=== PATIENT | female | born 1975 | race Caucasian/White ===

== ENCOUNTER 2018-01-21 16:05 | Emergency (ER) | payer SELFPAY ==
[~2018-01-21] VITALS: Ht 170.2 cm; Wt 56.0 kg
[2018-01-21 16:39] VITALS: BP 135/98
[2018-01-21 17:29] LABS: URINE BILIRUBIN - DIPSTICK NEGATIVE (NEGATIVE); URINE BLOOD DIPSTICK NEGATIVE (NEGATIVE); URINE CLARITY CLEAR; URINE COLOR YELLOW; URINE GLUCOSE - DIPSTICK NEGATIVE (NEGATIVE); URINE KETONE NEGATIVE (NEGATIVE); URINE LEUK ESTERASE NEGATIVE (NEGATIVE); URINE NITRITE - DIPSTICK NEGATIVE (Negative); URINE PROTEIN - DIPSTICK NEGATIVE (NEG-TRACE); URINE SPECIFIC GRAVITY <=1.005; URINE UROBILINOGEN - DIPSTICK 0.2 E.U./dL (0.2)
[2018-01-21 17:30] LABS: HEMATOCRIT 44.1 % (37.0-47.0); HEMOGLOBIN 14.3 g/dl (12.0-16.0); IMMATURE GRANULOCYTES 0.3 % (0.0-1.0); MEAN CELL VOLUME 93.4 fL CALC (80.0-100.0); MEAN CORPUSCULAR HGB 30.3 pG CALC (26.0-32.0); MEAN CORPUSCULAR HGB CONC 32.4 g/L CALC (32.0-36.0); NEUT# 4.71 thou/uL (2.00-7.15); RED BLOOD COUNT 4.72 mill/uL (4.20-5.60); RED CELL DISTRI WIDTH 14.8 % (11.5-15.5)
[2018-01-21 17:43] LABS: ALBUMIN 4.8 g/dL (3.2-5.0); ALKALINE PHOSPHATASE 133 u/l (38-126); ANION GAP 14 (6-22 (CALC)); BILIRUBIN, TOTAL 0.6 mg/dL (0.0-1.4); BUN 10 mg/dL (7-17); BUN/CREATININE RATIO 14 (12-20 (CALC)); CARBON DIOXIDE 25 mmol/l (22-30); CHLORIDE 105 mmol/l (95-108); CREATININE 0.7 mg/dL (0.5-1.0); GFR > 60 ML/MIN (>=60 (CALC)); GFR FOR AFR.AMER. > 60 ML/MIN (>=60 (CALC)); SGOT/AST 271 u/l (14-36); SGPT/ALT 452 u/l (9-52); SODIUM 140 mmol/l (137-146); TOTAL PROTEIN 8.9 g/dL (6.3-8.2)
[2018-01-21] MEDS ORDERED: LORTAB 5/3255 MG PO (18:06)
[2018-01-21] MEDS ORDERED: MOTRIN800 MG PO (18:06)
[2018-01-21] MEDS ORDERED: FLEXERIL PO (18:06)
[2018-01-21 18:07] LABS: LIPASE 138 u/l (23-300)
== END 2018-01-21 18:25 | disposition home or self-care (01) | DRG 552 ==
LOC: ED 16:05
PROVIDERS: Emergency Medicine
DX: M54.9 Dorsalgia, unspecified (principal); R74.8 Abnormal levels of other serum enzymes; F17.210 Nicotine dependence, cigarettes, uncomplicated; Z87.440 Personal history of urinary (tract) infections

== ENCOUNTER 2018-05-05 18:43 | Emergency (ER) | payer SELFPAY ==
[~2018-05-05] VITALS: Ht 170.2 cm; Wt 56.2 kg
[~2018-05-05 18:43] MED LIST: FLEXERIL PO; LORTAB 5/3255 MG PO; MOTRIN800 MG PO
[2018-05-05 19:31] LABS: HEMATOCRIT 39.8 % (37.0-47.0); HEMOGLOBIN 12.8 g/dl (12.0-16.0); IMMATURE GRANULOCYTES 0.3 % (0.0-5.0); MEAN CELL VOLUME 89.8 fL CALC (80.0-100.0); MEAN CORPUSCULAR HGB 28.9 pG CALC (26.0-32.0); MEAN CORPUSCULAR HGB CONC 32.2 g/L CALC (32.0-36.0); NEUT# 2.93 thou/uL (2.00-7.15); RED BLOOD COUNT 4.43 mill/uL (4.20-5.60); RED CELL DISTRI WIDTH 14.2 % (11.5-15.5)
[2018-05-05 19:35] LABS: URINE BILIRUBIN - DIPSTICK NEGATIVE (NEGATIVE); URINE BLOOD DIPSTICK NEGATIVE (NEGATIVE); URINE COLOR YELLOW; URINE GLUCOSE - DIPSTICK NEGATIVE (NEGATIVE); URINE KETONE NEGATIVE (NEGATIVE); URINE LEUK ESTERASE NEGATIVE (NEGATIVE); URINE NITRITE - DIPSTICK NEGATIVE (Negative); URINE PROTEIN - DIPSTICK NEGATIVE (NEG-TRACE)
[2018-05-05 19:38] LABS: URINE CLARITY CLEAR
[2018-05-05 19:49] LABS: ALBUMIN 4.6 g/dL (3.2-5.0); ANION GAP 15 (6-22 (CALC)); BILIRUBIN, TOTAL 0.4 mg/dL (0.0-1.4); BUN 7 mg/dL (7-17); BUN/CREATININE RATIO 11 (12-20 (CALC)); CARBON DIOXIDE 25 mmol/l (22-30); CHLORIDE 108 mmol/l (95-108); CREATININE 0.6 mg/dL (0.5-1.0); GFR > 60 ML/MIN (>=60 (CALC)); GFR FOR AFR.AMER. > 60 ML/MIN (>=60 (CALC)); POTASSIUM 4.4 mmol/l (3.5-5.1); SGOT/AST 200 u/l (14-36); SODIUM 143 mmol/l (137-146); TOTAL PROTEIN 8.1 g/dL (6.3-8.2)
[2018-05-05 19:50] LABS: ALKALINE PHOSPHATASE 65 u/l (38-126)
[2018-05-05] MEDS ORDERED: XANAX0.25 MG PO (20:36)
[2018-05-05 20:42] VITALS: BP 141/99
== END 2018-05-05 20:56 | disposition home or self-care (01) | DRG 882 ==
LOC: ED 18:43
PROVIDERS: Emergency Medicine
DX: F43.23 Adjustment disorder with mixed anxiety and depressed mood (principal); F17.200 Nicotine dependence, unspecified, uncomplicated; T43.506A Underdosing of unspecified antipsychotics and neuroleptics, initial encounter; Z91.128 Patient's intentional underdosing of medication regimen for other reason

== ENCOUNTER 2018-05-28 02:51 | Emergency (ER) | payer SELFPAY ==
[~2018-05-28] VITALS: Ht 170.2 cm; Wt 55.0 kg
[~2018-05-28 02:51] MED LIST changes: +XANAX0.25 MG PO
[2018-05-28 03:45] LABS: HEMATOCRIT 40.3 % (37.0-47.0); HEMOGLOBIN 13.1 g/dl (12.0-16.0); MEAN CELL VOLUME 87.2 fL CALC (80.0-100.0); MEAN CORPUSCULAR HGB 28.4 pG CALC (26.0-32.0); MEAN CORPUSCULAR HGB CONC 32.5 g/L CALC (32.0-36.0); NEUT# 3.04 thou/uL (2.00-7.15); RED BLOOD COUNT 4.62 mill/uL (4.20-5.60); RED CELL DISTRI WIDTH 15.2 % (11.5-15.5)
[2018-05-28 03:51] LABS: BARBITURATES NEGATIVE (NEGATIVE); COCAINE NEGATIVE (NEGATIVE); METHADONE NEGATIVE (NEGATIVE); OXCYCODONE NEGATIVE (NEGATIVE); TETRAHYDROCANNABIONOL POSITIVE (NEGATIVE); TRICYLIC ANTIDEPRESSANTS NEGATIVE (NEGATIVE)
[2018-05-28 04:00] LABS: ALBUMIN 4.5 g/dL (3.2-5.0); ALKALINE PHOSPHATASE 66 u/l (38-126); ANION GAP 18 (6-22 (CALC)); BILIRUBIN, TOTAL 0.6 mg/dL (0.0-1.4); BUN 11 mg/dL (7-17); BUN/CREATININE RATIO 19 (12-20 (CALC)); CARBON DIOXIDE 22 mmol/l (22-30); CHLORIDE 107 mmol/l (95-108); CREATININE 0.6 mg/dL (0.5-1.0); GFR > 60 ML/MIN (>=60 (CALC)); GFR FOR AFR.AMER. > 60 ML/MIN (>=60 (CALC)); POTASSIUM 3.9 mmol/l (3.5-5.1); SGOT/AST 108 u/l (14-36); SODIUM 144 mmol/l (137-146)
[2018-05-28] MEDS ORDERED: ASPIRIN81 MG PO (04:00)
[2018-05-28 04:01] LABS: ETHYL ALCOHOL 85 mg/dl (0-30)
[2018-05-28] MEDS ORDERED: ORTHO NOVUM (04:02)
[2018-05-28 04:12] LABS: MYOGLOBIN 24 ng/mL (0 - 62)
[2018-05-28 04:16] LABS: ACT PARTIAL THROMBO TIME 24.2 SECONDS (20.0-32.5); D-DIMER 0.42 mg/L (0.19-0.60); PROTHROMBIN TIME 10.6 SECONDS (9.0-12.5)
[2018-05-28] MEDS ORDERED: ZOLOFT50 MG PO (04:57)
[2018-05-28] MEDS ORDERED: ATIVAN0.5 MG PO (04:57)
[2018-05-28 05:44] VITALS: BP 133/67
== END 2018-05-28 05:45 | disposition home or self-care (01) | DRG 880 ==
LOC: ED 02:51
PROVIDERS: Family Medicine
DX: F41.0 Panic disorder [episodic paroxysmal anxiety] (principal); F10.10 Alcohol abuse, uncomplicated; F17.200 Nicotine dependence, unspecified, uncomplicated
CPT/HCPCS: J2060; J3360

== ENCOUNTER 2018-06-04 11:39 | Emergency (ER) | payer SELFPAY ==
[~2018-06-04] VITALS: Ht 170.2 cm; Wt 49.0 kg
[~2018-06-04 11:39] MED LIST changes: +ASPIRIN81 MG PO; +ATIVAN0.5 MG PO; +ORTHO NOVUM; +ZOLOFT50 MG PO
[2018-06-04 12:20] LABS: HEMATOCRIT 38.1 % (37.0-47.0); HEMOGLOBIN 12.9 g/dl (12.0-16.0); IMMATURE GRANULOCYTES 0.6 % (0.0-5.0); MEAN CELL VOLUME 83.4 fL CALC (80.0-100.0); MEAN CORPUSCULAR HGB 28.2 pG CALC (26.0-32.0); MEAN CORPUSCULAR HGB CONC 33.9 g/L CALC (32.0-36.0); NEUT# 6.59 thou/uL (2.00-7.15); RED BLOOD COUNT 4.57 mill/uL (4.20-5.60); RED CELL DISTRI WIDTH 15.6 % (11.5-15.5)
[2018-06-04 12:51] LABS: AMYLASE 83 u/l (30-110); LIPASE 457 u/l (23-300)
[2018-06-04 12:51] LABS: ALBUMIN 4.4 g/dL (3.2-5.0); ALKALINE PHOSPHATASE 88 u/l (38-126); ANION GAP 19 (6-22 (CALC)); BILIRUBIN, TOTAL 1.7 mg/dL (0.0-1.4); BUN 7 mg/dL (7-17); BUN/CREATININE RATIO 12 (12-20 (CALC)); CARBON DIOXIDE 23 mmol/l (22-30); CHLORIDE 97 mmol/l (95-108); CREATININE 0.5 mg/dL (0.5-1.0); ETHYL ALCOHOL 123 mg/dl (0-30); GFR > 60 ML/MIN (>=60 (CALC)); GFR FOR AFR.AMER. > 60 ML/MIN (>=60 (CALC)); POTASSIUM 3.5 mmol/l (3.5-5.1); SGOT/AST 181 u/l (14-36); SODIUM 135 mmol/l (137-146); TOTAL PROTEIN 7.8 g/dL (6.3-8.2)
[2018-06-04 12:57] LABS: URINE BILIRUBIN - DIPSTICK NEGATIVE (NEGATIVE); URINE BLOOD DIPSTICK TRACE-INTACT (NEGATIVE); URINE CLARITY CLEAR; URINE COLOR YELLOW; URINE GLUCOSE - DIPSTICK NEGATIVE (NEGATIVE); URINE KETONE 15 mg/dL (NEGATIVE); URINE LEUK ESTERASE NEGATIVE (NEGATIVE); URINE NITRITE - DIPSTICK NEGATIVE (Negative); URINE PH 6.5 (4.5-8.0); URINE PROTEIN - DIPSTICK NEGATIVE (NEG-TRACE); URINE SPECIFIC GRAVITY <=1.005; URINE UROBILINOGEN - DIPSTICK 0.2 E.U./dL (0.2)
[2018-06-04 13:16] LABS: BARBITURATES NEGATIVE (NEGATIVE); COCAINE NEGATIVE (NEGATIVE); METHADONE NEGATIVE (NEGATIVE); OXCYCODONE NEGATIVE (NEGATIVE); TETRAHYDROCANNABIONOL POSITIVE (NEGATIVE); TRICYLIC ANTIDEPRESSANTS NEGATIVE (NEGATIVE)
[2018-06-04] MEDS ORDERED: PREVACID30 M3 PO (15:03)
[2018-06-04] MEDS ORDERED: ZOFRAN ODT4 MG PO (15:03)
[2018-06-04 15:11] VITALS: BP 176/86
== END 2018-06-04 15:35 | disposition home or self-care (01) | DRG 880 ==
LOC: ED 11:39
PROVIDERS: Emergency Medicine
DX: F41.9 Anxiety disorder, unspecified (principal); F10.20 Alcohol dependence, uncomplicated; F17.210 Nicotine dependence, cigarettes, uncomplicated
CPT/HCPCS: J2060; Q9967; S0164

== ENCOUNTER 2018-06-16 13:19 | Inpatient (IN) | payer SELFPAY ==
[~2018-06-16] VITALS: Ht 170.2 cm; Wt 52.8 kg
[2018-06-16] VITALS (9 sets, daily range): BP systolic 122–150; BP diastolic 73–82
[~2018-06-16 13:19] MED LIST changes: +PREVACID30 M3 PO; +ZOFRAN ODT4 MG PO
--- NOTE | 2018-06-16 13:19 | NUR ---
PT ARRIVED VIA EMS , TREMULOUS BUT ALERT.TACHYPNEA O2 SAT 100% ON RA.
--- NOTE | 2018-06-16 13:42 | NUR ---
PT TALKING ABOUT SON WHO WAS [place] ACT[place] FOR [place] ,LESS TREMULOUS. IV FLUIDS INFUSING WELL. PADDED SR INTACT. NO SEIZURE ACTIVITY
[2018-06-16 14:01] LABS: HEMATOCRIT 34.1 % (37.0-47.0); HEMOGLOBIN 11.9 g/dl (12.0-16.0); IMMATURE GRANULOCYTES 1.4 % (0.0-5.0); MEAN CELL VOLUME 81.8 fL CALC (80.0-100.0); MEAN CORPUSCULAR HGB 28.5 pG CALC (26.0-32.0); MEAN CORPUSCULAR HGB CONC 34.9 g/L CALC (32.0-36.0); NEUT# 6.17 thou/uL (2.00-7.15); RED BLOOD COUNT 4.17 mill/uL (4.20-5.60); RED CELL DISTRI WIDTH 17.2 % (11.5-15.5)
--- NOTE | 2018-06-16 14:07 | NUR ---
PT RESTING MORE COMFORTBALY AT THIS TIME, RESOLUTION OF TREMORS NOTED AT PRESENT.VSS.
[2018-06-16 14:16] LABS: ALBUMIN 4.2 g/dL (3.2-5.0); ALKALINE PHOSPHATASE 89 u/l (38-126); BILIRUBIN, TOTAL 2.3 mg/dL (0.0-1.4); BUN 6 mg/dL (7-17); BUN/CREATININE RATIO 12 (12-20 (CALC)); CHLORIDE 93 mmol/l (95-108); CREATININE 0.5 mg/dL (0.5-1.0); ETHYL ALCOHOL 24 mg/dl (0-30); GFR > 60 ML/MIN (>=60 (CALC)); GFR FOR AFR.AMER. > 60 ML/MIN (>=60 (CALC)); LIPASE 694 u/l (23-300); POTASSIUM 3.3 mmol/l (3.5-5.1); SODIUM 130 mmol/l (137-146); TOTAL PROTEIN 7.2 g/dL (6.3-8.2)
[2018-06-16 14:56] LABS: ANION GAP 27 (6-22 (CALC)); CARBON DIOXIDE 13 mmol/l (22-30); SGOT/AST 408 u/l (14-36)
[2018-06-16 15:40] LABS: URINE BILIRUBIN - DIPSTICK NEGATIVE (NEGATIVE); URINE BLOOD DIPSTICK SMALL (NEGATIVE); URINE COLOR YELLOW; URINE GLUCOSE - DIPSTICK NEGATIVE (NEGATIVE); URINE KETONE 15 mg/dL (NEGATIVE); URINE LEUK ESTERASE NEGATIVE (NEGATIVE); URINE NITRITE - DIPSTICK NEGATIVE (Negative); URINE PROTEIN - DIPSTICK NEGATIVE (NEG-TRACE); URINE UROBILINOGEN - DIPSTICK 0.2 E.U./dL (0.2)
[2018-06-16 15:44] LABS: URINE CLARITY CLEAR; URINE SQUAMOUS EPITHELIAL CELL FEW EPI/hpf (0-FEW); URINE WBC 0-2 WBC/hpf (0-5)
--- NOTE | 2018-06-16 16:34 | NUR ---
PT RESTING ON STRETCHER, DENIES COMPLAINTS. CALL LIGHT INREACH.
[2018-06-16 16:39] LABS: PROTHROMBIN TIME 10.7 SECONDS (9.0-12.5)
--- NOTE | 2018-06-16 17:35 | NUR ---
CALLED REPORT TO [facility]. DIVYA LUGO AT BEDSIDE TO INITIATE IV FOR IV ATIVAN
--- NOTE | 2018-06-16 17:50 | NUR ---
TRANSPORTED AT THIS TIME
--- NOTE | 2018-06-16 18:00 | NUR ---
PT ARRIVES TO ICU AT THIS TIME, AMBULATORY TO BED.
--- NOTE | 2018-06-16 19:15 | NUR ---
awake. no acute distress. no tremors. #18 lac ativan gtt infusing @ 1mghr 1/2ns infusing @ 125cchr. up to bsc to void. urine alexandr colored. history obtained per pt & er record. oriented to room. fall precautions cont. pt admits her son has been [place] acted & is currently in [place], admits she has perscription for ativan she "didn't get filled because of my son." she also admits she has been on zoloft for weeks "it makes me hallucinate & feel depressed." home meds retrieved & placed in med room.
--- NOTE | 2018-06-16 22:00 | NUR ---
eyes closed. ear buds in. no distress. no tremors or sz activity. shelter monitor shows sinus rhythm.
[2018-06-17] VITALS (11 sets, daily range): BP systolic 106–141; BP diastolic 62–86
--- NOTE | 2018-06-17 00:01 | NUR ---
eyes closed. no distress. property assessment monitor shows sinus rhythm.
--- NOTE | 2018-06-17 02:00 | NUR ---
resting quietly. resps even & unlabored. no apparent distress.
--- NOTE | 2018-06-17 04:00 | NUR ---
up to bsc. alejandro well.
--- NOTE | 2018-06-17 04:45 | NUR ---
lab here. blood drawn.
[2018-06-17 05:18] LABS: HEMATOCRIT 34.6 % (37.0-47.0); HEMOGLOBIN 11.9 g/dl (12.0-16.0); IMMATURE GRANULOCYTES 0.2 % (0.0-5.0); MEAN CELL VOLUME 82.8 fL CALC (80.0-100.0); MEAN CORPUSCULAR HGB 28.5 pG CALC (26.0-32.0); MEAN CORPUSCULAR HGB CONC 34.4 g/L CALC (32.0-36.0); NEUT# 3.6 thou/uL (2.00-7.15); RED BLOOD COUNT 4.18 mill/uL (4.20-5.60); RED CELL DISTRI WIDTH 17.8 % (11.5-15.5)
[2018-06-17 05:41] LABS: ALBUMIN 3.5 g/dL (3.2-5.0); ALKALINE PHOSPHATASE 78 u/l (38-126); BILIRUBIN, TOTAL 2.7 mg/dL (0.0-1.4); BUN 5 mg/dL (7-17); BUN/CREATININE RATIO 14 (12-20 (CALC)); CHLORIDE 99 mmol/l (95-108); CREATININE 0.4 mg/dL (0.5-1.0); GFR > 60 ML/MIN (>=60 (CALC)); GFR FOR AFR.AMER. > 60 ML/MIN (>=60 (CALC)); POTASSIUM 2.9 mmol/l (3.5-5.1); SGOT/AST 273 u/l (14-36); SODIUM 135 mmol/l (137-146); TOTAL PROTEIN 6.4 g/dL (6.3-8.2)
[2018-06-17 05:46] LABS: ANION GAP 11 (6-22 (CALC)); CARBON DIOXIDE 28 mmol/l (22-30); MAGNESIUM 2.1 mg/dL (1.6-2.3)
--- NOTE | 2018-06-17 06:00 | NUR ---
watching tv. no distress. no tremors. personnel monitor shows sinus rhythm.
--- NOTE | 2018-06-17 08:11 | NUR ---
PT SEEN AWAKE, ALERT, ORIENTED X 3. LUNGS CLEAR, RA. FLAT AFFECT. NO TREMORS NOTED WITH ARMS EXTENDED.
[2018-06-17] MEDS ORDERED: MELATONIN PO (08:44)
[2018-06-17] MEDS ORDERED: ENERGY PO (08:47)
--- NOTE | 2018-06-17 11:41 | NUR ---
PT NOW WITH ATIVAN ON HOLD, PROVIDED WITH POTASSIUM RIDERS. PT SEEN CALM, BECOMES EMOTIONAL EASILY WHEN SHE WAS ALLOWED TO HAVE CLEAR LIQUID DIET. PT UPDATED ON LABS, GOALS FOR TREATMENT. NO ACUTE DISTRESS NOTED.
[2018-06-17] MEDS ORDERED: ORTHO NOVUM PO (11:54)
--- NOTE | 2018-06-17 16:12 | NUR ---
ATIVAN DRIP CONTINUES INTERMITTENTLY. AFTER IT WAS STOPPED EARLIER, SHE SAID LATER THAT SHE NEEDED IT AGAIN. ONE PUMP USED FOR SODIUM PHOSPHATE AND ATIVAN, NOT COMPATIBLE, SO ONE TAKEN DOWN WHEN OTHER IS RUNNING. PT HAS HAD ONE VISITOR TODAY. NO DISTRESS, NO TREMORS, NO SEIZURES, NO AMS.
--- NOTE | 2018-06-17 18:25 | NUR ---
PT NOW WITH ATIVAN DRIP AGAIN, OTHER IVPB DONE. PT CONTINUES APPROPRIATE, NO TREMORS OR SEIZURES.
--- NOTE | 2018-06-17 19:00 | NUR ---
awakens easily. no c/o voiced. director plans shows sinus rhythm. #22 rt wrist saline lock. #18 lac ativan gtt infusing @ 1mghr, 1/2ns infusing @ 125cchr. po fluids taken well. voids per bsc. fall precautions cont.
--- NOTE | 2018-06-17 22:00 | NUR ---
eyes closed. no distress. patient monitor shows sinus rhythm.
[2018-06-18] VITALS (16 sets, daily range): BP systolic 101–144; BP diastolic 65–94
--- NOTE | 2018-06-18 00:01 | NUR ---
eyes closed. no distress. no tremors.
--- NOTE | 2018-06-18 02:00 | NUR ---
resting quietly. resps even & unlabored. no apparent distress.
--- NOTE | 2018-06-18 04:00 | NUR ---
eyes closed. no distress. ekg monitor shows sinus rhythm.
--- NOTE | 2018-06-18 06:00 | NUR ---
awake. no acute distress. no tremors.
[2018-06-18 06:15] LABS: ALKALINE PHOSPHATASE 63 u/l (38-126); AMYLASE 83 u/l (30-110); ANION GAP 9 (6-22 (CALC)); BILIRUBIN, TOTAL 1.5 mg/dL (0.0-1.4); BUN 5 mg/dL (7-17); BUN/CREATININE RATIO 16 (12-20 (CALC)); CARBON DIOXIDE 23 mmol/l (22-30); CHLORIDE 107 mmol/l (95-108); CREATININE 0.3 mg/dL (0.5-1.0); GFR > 60 ML/MIN (>=60 (CALC)); GFR FOR AFR.AMER. > 60 ML/MIN (>=60 (CALC)); HEMATOCRIT 33.3 % (37.0-47.0); HEMOGLOBIN 11.1 g/dl (12.0-16.0); IMMATURE GRANULOCYTES 0.4 % (0.0-5.0); LIPASE 729 u/l (23-300); MAGNESIUM 1.8 mg/dL (1.6-2.3); MEAN CELL VOLUME 85.6 fL CALC (80.0-100.0); MEAN CORPUSCULAR HGB 28.5 pG CALC (26.0-32.0); MEAN CORPUSCULAR HGB CONC 33.3 g/L CALC (32.0-36.0); NEUT# 1.51 thou/uL (2.00-7.15); POTASSIUM 2.9 mmol/l (3.5-5.1); RED BLOOD COUNT 3.89 mill/uL (4.20-5.60); RED CELL DISTRI WIDTH 18.3 % (11.5-15.5); SGOT/AST 167 u/l (14-36); SODIUM 136 mmol/l (137-146); TOTAL PROTEIN 5.8 g/dL (6.3-8.2)
--- NOTE | 2018-06-18 07:20 | NUR ---
PT RESTING IN BED; OOB TO BSC INDPENDENTLY, TOLERATES ACTIVITY WELL. AM ASSESSMENT COMPLETED; SEE INTERVENTIONS; SKIN WARM DRY AND INTACT; PT HAS FLAT AFFECT; ATIVAN GTT INFUSING AT 1MG/HR; IVF INFUSING AT PRESCRIBED RATE; PT ASKS WHAT TIME BREAKFAST IS SERVED "I AM SO HUNGRY" EDUCATED REGARDING MEAL TIMES; BP STABLE PT AFEBRILE THIS AM, TELE REDAING SR RATE IN THE 70'S; VOICE QUIET AND SLIGHTLY SLOW TO RESPOND TO QUESTIONS AT TIMES BUT ALERT AND ORIENTED, AND DOES ANSWER APPROPRIATELY. SAFETY MEASURES REINFORCED, CALL ESCALERA WITHIN REACH, WILL CONTINUE TO MONITOR.
--- NOTE | 2018-06-18 07:40 | NUR ---
SET UP ASSIST PROVIDED FOR AM MEAL, CALL ESCALERA WITHIN REACH.
--- NOTE | 2018-06-18 08:45 | NUR ---
RESTING IN BED WITH EYES CLOSED, TOELRATED AM MEAL W/O INCIDENT, CALL ESCALERA WITHIN REACH, WILL CONTINUE TO MONITOR
--- NOTE | 2018-06-18 09:20 | NUR ---
OFFERED ADL CARE AND TO GET CLEANED UP PT STATES "NOT NOW MAYBE LATER" COMFORT MEASURES PROVIDED, IVF AND ATIVAN GTT CONTINUE ORDERED, WILL CONTINUE TO MONITOR.
--- NOTE | 2018-06-18 10:28 | NUR ---
INTO SEE PATIENT, PLAN OF CARE DISCUSSED INCLUDING WEANING ATIVAN GTT, WILL MONITOR TOLERANCE
--- NOTE | 2018-06-18 12:00 | NUR ---
ATIVAN GTT STOPPED AT THIS TIME AND PO LIBRIUM STARTED. PT AWARE ADN OF ATIVAN IV PRN IF NEEDED
--- NOTE | 2018-06-18 12:10 | NUR ---
AT BEDSIDE FOR TLC INSERTION, CONSENT OBTAINED, TIME OUT PERFORMED AND STERILE TECHNIQUE OBSERVED, PT TOLERATED WELL, L SC TLC IN PLACE AND SUTURED; RADIOLOGY NOTIFIED FOR STAT CXR FOR PLACEMENT.
--- NOTE | 2018-06-18 13:02 | NUR ---
PT RESTING HOB ELEVATED PEYMAN ALDO PROVIDED PER PT REQUEST, TOLERATING DIET W/O INCIDENT, WILL CONTINUE TO MONITOR
--- NOTE | 2018-06-18 15:33 | NUR ---
PT COMPLAINING OF HEADACHE TO BACK OF HEAD STATES ITS PROBABLY FROM FALLING AT HOME, "I CAME IN A DRUNKEN STUPOR BUT NOW ITS ALL CATCHING UP WITH ME" NOTHING FOR PAIN ORDERED, MD NOTIFIED AWAITING RETURN CALL.
--- NOTE | 2018-06-18 15:56 | NUR ---
MEDICATED WITH ULTRAM ORDERED FOR COMPLAINTS OF HEAD ACHE, WILL CONTINUE TO MONITOR.
--- NOTE | 2018-06-18 16:52 | NUR ---
PT RESTING WITH EYES CLOSED, IVF CONTIUE POTASSIUM RIDERS COMPLETE, PT TOLERATED WELL, WILL CONTINUE TO MONITOR.
--- NOTE | 2018-06-18 18:18 | NUR ---
PT PROVIDED TURKEY SANDWICH PER HER REQUEST STATES SHE IS LACTOSE INTOLERANT SO SHE DID NOT WANT THE GRILLED CHEESE SANDWICH (PT DID EAT HALF OF IT) CALL ESCALERA WITHIN REACH, WILL CONTINUE TO MONITOR
--- NOTE | 2018-06-18 19:00 | NUR ---
BEDSIDE REPORT RECEIVED FROM DIVYA LOPEZ. PT RESTING IN BED SUPINE WITH EYES CLOSED; EYES OPEN TO VERBAL STIMULI; ALERT WITH FLAT AFFECT. C/O HEADACHE AND SORENESS TO NEWLY PLACED CENTRAL LINE. RESPIRATIONS EVEN AND UNLABORED ON ROOM AIR. BANANA BAG WITH POTASSIUM INFUSING INTO LINE. PLAN OF CARE REVIEWED. PT ENCOURAGED TO VERABLIZE CONCERNS. STATES UNDERSTANDING AND REQUESTS PAIN AND ANXIETY MEDICATION. SAFETY MEASURES IN PLACE. CALL LIGHT WITHIN REACH.
--- NOTE | 2018-06-18 20:29 | NUR ---
IV ATIVAN GIVEN; TRIPLE LUMEN CENTRAL LINE TO LEFT SUBCLAVIAN FLUSHES WELL WITH GOOD BLOOD RETURN. NORMAL SALINE INFUSING NOW AT 125ML/HR. PT WITH HOB ELEVATED.
--- NOTE | 2018-06-18 22:27 | NUR ---
PT CONTINUES TO C/O HEADACHE; WILL MEDICATE WHEN MED AVAILABLE. NO OTHER REQUESTS OR CONCERNS AT THIS TIME.
[2018-06-19] VITALS (9 sets, daily range): BP systolic 125–145; BP diastolic 78–92
--- NOTE | 2018-06-19 00:28 | NUR ---
LIBRIUM GIVEN AT SCHEDULED AND TRAMADOL GIVEN FOR HEADACHE 01/25 WITH GOOD EFFECT. URINE SPECIMEN COLLECTED. PT CONTINUES TO REPORT MILD PAIN AROUND CENTRAL LINE INSERTION SITE; NO SIGNS OF SWELLING OR REDNESS; WILL CONTINUE TO MONITOR.
[2018-06-19 01:45] LABS: URINE BILIRUBIN - DIPSTICK NEGATIVE (NEGATIVE); URINE BLOOD DIPSTICK TRACE-INTACT (NEGATIVE); URINE COLOR YELLOW; URINE GLUCOSE - DIPSTICK NEGATIVE (NEGATIVE); URINE KETONE NEGATIVE (NEGATIVE); URINE LEUK ESTERASE TRACE (Negative); URINE NITRITE - DIPSTICK NEGATIVE (Negative); URINE PH 7.5 (4.5-8.0); URINE PROTEIN - DIPSTICK NEGATIVE (NEG-TRACE); URINE SPECIFIC GRAVITY 1.015
--- NOTE | 2018-06-19 02:01 | NUR ---
PT ASLEEP AT THIS TIME WITH NO SIGNS OF DISTRESS. RESPIRATIONS EVEN AND UNLABORED ON ROOM AIR. PT UP TO BSC TO VOID INDEPENDENTLY.
[2018-06-19 02:12] LABS: URINE CLARITY CLEAR
--- NOTE | 2018-06-19 04:01 | NUR ---
UP TO BSC TO VOID AT THIS TIME. STATES THAT TRAMADOL WAS EFFECTIVE FOR HEADACHE.
[2018-06-19 05:44] LABS: HEMATOCRIT 33.1 % (37.0-47.0); HEMOGLOBIN 10.8 g/dl (12.0-16.0); IMMATURE GRANULOCYTES 0.4 % (0.0-5.0); MEAN CELL VOLUME 87.1 fL CALC (80.0-100.0); MEAN CORPUSCULAR HGB 28.4 pG CALC (26.0-32.0); MEAN CORPUSCULAR HGB CONC 32.6 g/L CALC (32.0-36.0); NEUT# 1.24 thou/uL (2.00-7.15); RED BLOOD COUNT 3.8 mill/uL (4.20-5.60); RED CELL DISTRI WIDTH 18.3 % (11.5-15.5)
[2018-06-19 06:07] LABS: ALKALINE PHOSPHATASE 65 u/l (38-126); AMYLASE 83 u/l (30-110); ANION GAP 8 (6-22 (CALC)); BILIRUBIN, TOTAL 1.1 mg/dL (0.0-1.4); BUN 5 mg/dL (7-17); BUN/CREATININE RATIO 12 (12-20 (CALC)); CARBON DIOXIDE 27 mmol/l (22-30); CHLORIDE 107 mmol/l (95-108); CREATININE 0.4 mg/dL (0.5-1.0); GFR > 60 ML/MIN (>=60 (CALC)); GFR FOR AFR.AMER. > 60 ML/MIN (>=60 (CALC)); LIPASE 572 u/l (23-300); MAGNESIUM 1.7 mg/dL (1.6-2.3); POTASSIUM 3.1 mmol/l (3.5-5.1); SGOT/AST 126 u/l (14-36); SODIUM 138 mmol/l (137-146); TOTAL PROTEIN 5.9 g/dL (6.3-8.2)
--- NOTE | 2018-06-19 06:23 | NUR ---
PT FREQUENTLY REQUESTING WHEN NEXT MEDICATIONS ARE DUE; LIBRIUM GIVEN SCHEDULED. TRIPLE LUMEN CENTRAL LINE FLUSHED WITH GOOD BLOOD RETURN. VOIDING CLEAR YELLOW URINE IN BSC.
--- NOTE | 2018-06-19 07:15 | NUR ---
PT RESTING IN BED; OOB TO BSC INDPENDENTLY, TOLERATES ACTIVITY WELL. AM ASSESSMENT COMPLETED; SEE INTERVENTIONS; SKIN WARM DRY AND INTACT; PT HAS FLAT AFFECT; IVF INFUSING AT PRESCRIBED RATE INTO LSC TLC W/O INCIDENT; PT ASKS WHAT TIME BREAKFAST IS SERVED "I AM SO HUNGRY" AGAIN EDUCATED REGARDING MEAL TIMES; BP STABLE PT AFEBRILE THIS AM, TELE READING SR RATE IN THE 70'S; VOICE QUIET AND SLIGHTLY SLOW TO RESPOND TO QUESTIONS AT TIMES BUT ALERT AND ORIENTED, AND DOES ANSWER APPROPRIATELY. SAFETY MEASURES REINFORCED, CALL ESCALERA WITHIN REACH, WILL CONTINUE TO MONITOR.
--- NOTE | 2018-06-19 07:35 | NUR ---
SET UP ASSIST PROVIDED FRO AM MEAL, OOB TO BSC VOIDED CLEAR CLAU URINE IN LARGE VLUME (800ml) PROVIDES SELF KATHIE CARE, BACK TO BED, WARM WASHCLOTH PROVIDED FOR HAND WASHING, AM MEAL AT BEDSIDE, WILL CONTINUE TO MONITOR.
--- NOTE | 2018-06-19 08:30 | NUR ---
MEDICTAED FOR COMPLAINTS OF HEADACHE ORDERED, IVF CONTINUE CALL ESCALERA WITHIN REACH, WILL CONTINUE TO MONITOR.
--- NOTE | 2018-06-19 09:30 | NUR ---
INTO SEE PATIENT, AWARE OF NEG HIV TESTING AND HEPATITIS RESULTS; CALM AT THIS TIME, GOOD APPETITE AND ATE 100% OF AM MEAL, CALL ESCALERA WITHIN REACH, MVI THIAMIN KcL ivf INFUSING AT PRESCRIBED RATE, WILL CONTINUE TO MONITOR.
--- NOTE | 2018-06-19 10:28 | NUR ---
AMBULATED AROUNG UNIT WITH STEADY GAIT, LINENS CHANGED AND PT TOLERATED ACTIVITY WELL
--- NOTE | 2018-06-19 11:30 | NUR ---
SET UP ASSIST PROVIDED FOR AFTERNOON MEAL, CALL ESCALERA WITHIN REACH.
--- NOTE | 2018-06-19 12:35 | NUR ---
SET UP ASSIST FOR PM MEAL PROVIDED CALL ESCALERA WITHIN REACH
--- NOTE | 2018-06-19 13:45 | NUR ---
PT RESTING AWARE OF PLANNED TRANSFER TO MED SURG, OFFERS NO NEW COMPLAINTS, CALL ESCALERA WITHIN REACH
--- NOTE | 2018-06-19 15:00 | NUR ---
REPORT CALLED TO RANDOLPH WING ON MED SURG
--- NOTE | 2018-06-19 15:20 | NUR ---
PT TRANSFERRED TO MED SURG VIA WHEELCAHIR, ALL BELONGINGS SENT WITH PATIENT, RANDOLPH WING ACCEPTING NURSE IN ROOM UPON ARRIVAL.
--- NOTE | 2018-06-19 15:25 | NUR ---
PT ARRIVED TO MS2 VIA WHEELCHAIR ACCOMPANIED BY NURSE. PT STABLE, WEIGHT OBTAINED 52.8 KG. ORIENTED TO ROOM AND CALL LIGHT, BANANA BAG INFUSION COMPLETED. INITATED 1/2NS PT C/O HEADACHE,MEDICATED WITH ULTRAM. DISCUSSED MED ADMINISTRATION TIMES. PT IN AGREEMENT. CALL LIGHT IN REACH,CONTINUE TO MONITOR.
--- NOTE | 2018-06-19 17:16 | NUR ---
PT C/O NAUSEA MEDICATED WITH ZOFRAN PT STATES SHE WOULD LIKE TO EAT DINNER AND BE ABLE TO TAKE HER MEDS. WILL AWAIT FOR PT TO NO LONGER BE NAUSEOUS BEFORE MED ADMNISTRATION.
--- NOTE | 2018-06-19 18:01 | NUR ---
PT TEARFUL, WHEN ASKED WHY PT STATES IT'S 6 O CLOCK AND IM JUST NOW GETTING MY DINNER, INFORMED PT THAT SOMETIMES WE ANTICIPATE THINGS TO HAPPEN THE WAY WE EXPECT BUT DUE TO CIRCUMSTANCES BEYOND OUR CONTROL SOMETIMES THINGS DO NOT GO PLANNED. MEDICATED PER MAR AND WITH ATIVAN. PT APOLOGETIC INFORMED PT SHE HAS NOTHING TO APOLOGIZE FOR. DENIES NAUSEA. CALL LIGHT IN REACH,CONTINUE TO MONITOR.
--- NOTE | 2018-06-19 19:35 | NUR ---
REPORT FROM RANDOLPH WING. PT SITTING UP IN BED. ALERT AND ORIENTED X3. IV APPEARS HEALTHY. PT REQUESTING ZOFRAN AT THIS TIME WILL ADMINISTER AT NEXT AVAILABLE DUE. DISCUSSED POC. ENCOURAGED SAFETY PRECAUTIONS. CALL LIGHT WITHIN REACH. WILL CONTINUE TO MONITOR.
--- NOTE | 2018-06-19 22:10 | NUR ---
PT REQUEST PAIN MEDICATION AT THIS TIME FOR BACK PAIN 12/26. NO AVAILABLE PRN PAIN MEDICATION CURRENTLY DUE. INFORMED PT OF NEXT AVAILABLE ADMINISTRATION TIME. ENCOURAGE RELAXATION TECHNIQUE. PT DECLINED. WILL ADMINISTERD PAIN MEDS WHEN DUE.
--- NOTE | 2018-06-20 00:08 | NUR ---
MEDICATED PT WITH ULTRAM AND LIBRIUM. PT APPEARS A LITTLE ANXIOUS AT THIS TIME AND IS REQUESTS ATIVAN. ENCOURAGED RELAXATION TECHNIQUES AND ADMINISTERED IV ATIVAN. PT HAS CALL LIGHT WITHIN REACH. WILL CONTINUE TO MONITOR.
[2018-06-20 04:36] VITALS: BP 116/76
--- NOTE | 2018-06-20 04:40 | NUR ---
PT RESTING IN BED WITH EYES CLOSED. IVF INFUSING WITHOUT DIFFICULTY. RESPIRATIONS EVEN AND UNLABORED. CALL LIGHT WITHIN REACH.
[2018-06-20 06:09] LABS: ALBUMIN 3.2 g/dL (3.2-5.0); BUN 9 mg/dL (7-17); CARBON DIOXIDE 29 mmol/l (22-30); CHLORIDE 105 mmol/l (95-108); CREATININE 0.5 mg/dL (0.5-1.0); GFR > 60 ML/MIN (>=60 (CALC)); GFR FOR AFR.AMER. > 60 ML/MIN (>=60 (CALC)); MAGNESIUM 1.7 mg/dL (1.6-2.3); SODIUM 138 mmol/l (137-146)
[2018-06-20 06:10] LABS: POTASSIUM 3.8 mmol/l (3.5-5.1)
--- NOTE | 2018-06-20 07:15 | NUR ---
REPORT RECEIVED FROM DIVYA DELGADILLO;PT APPEARS TO BE SLEEPING IN SEMI FOWLERS POSITION;NO S/S OF DISTRESS NOTED;RESPIRATIONS EVEN AND UNLABORED ON RA;IV FLUIDS CONTINUE TO INFUSE TO LEFT SUBCLAVIAN TRIPLE LUMEN @ 125ML/HR;FALL PRECAUTIONS IN PLACE WITH CALL LIGHT IN REACH;WILL CONTINUE TO MONITOR
[2018-06-20 08:00] VITALS: BP 129/87
--- NOTE | 2018-06-20 08:00 | NUR ---
PT RESTING IN SEMI FOWLERS POSITION;ASSESSMENT COMPLETED AND VS OBTAINED;RESPIRATIONS EVEN AND UNLABORED ON RA,CLEAR LUNG SOUNDS NOTED;ABDOMEN SOFT ON PALPATION AND ACTIVE IN ALL 4 QUADRANTS;STRONG PEDAL PULSES;SKIN INTACT;LEFT SUBCLAVIAN TRIPPLE LUMEN INFUSING 1/2 NS WITH EASE;PT REPORTS GENERALIZES PAIN RATING 6/10 ON THE PAIN SCALE AND ANXIETY,REQUESTING MEDICATION;PT MEDICATED WITH ULTRAM 50MG PO AND ATIVAN 1 MG IVP AT THIS TIME;PT DENIES ANY CURRENT NEEDS AND IS INSTRUCTED TO CALL FOR ASSISTANCE IF NEEDED;CALL LIGHT IN REACH;WILL CONTINUE TO MONITOR
--- NOTE | 2018-06-20 10:29 | NUR ---
PT MEDICATED WITH ZOFRAN 4MG IVP PER REQUEST AND COMPLAINT OF NAUSEA.WILL CONTINUE TO MONITOR
--- NOTE | 2018-06-20 11:50 | NUR ---
UPON ENTERING THE ROOM WITH PT NOTED TO BE STANDING AT BEDSIDE, TEARY EYED; DISCUSSED POC AND PT VERBALIZED UNDERSTANDING;RESPIRATIONS REMAIN EVEN AND UNLABORED ON RA;CIWA RESULTING AT 2 AT THIS TIME;LEFT SUBCLAVIAN TRIPLE LUMEN REMAINS PATENT INFUSING BANANA BAG WITH EASE;PT DENIES ANY CURRENT NEEDS AND IS INSTRUCTED TO CALL FOR ASSISTANCE IF NEEDED;SEIZURE PRECAUTIONS IN PLACE WITH CALL LIGHT IN REACH;WILL CONTINUE TO MONITOR
--- NOTE | 2018-06-20 14:20 | NUR ---
PT COMPLAINING OF ANXIETY REQUESTING ATIVAN;PT MEDICATED WITH PRN ATIVAN 1MG IVP AT THIS TIME, WILL MONITOR FOR EFFECTIVENESS
[2018-06-20 15:00] VITALS: BP 124/73
--- NOTE | 2018-06-20 16:08 | NUR ---
PT RESTING IN SEMI FOWLERS POSITION REQUESTNG PAIN AND NAUSEA MEDICATION;PT REPORTS GENERALIZED PAIN RATING 7/10 ON THE PAIN SCALE;PT MEDICATED WITH PRN ULTRAM 50MG PO AND ZOFRAN 4MG IVP;RESPIRATIONS EVEN AND UNLABORED ON RA;IV FLUIDS CONTINUE TO INFUSE WITH EASE TO LEFT SUBCLAVIAN;PT ENCOURAGED TO CALL FOR ASSISTANCE IF NEEDED;FALL AND SEIZURE PRECAUTIONS IN PLACE;CALL LIGHT IN REACH;WILL CONTINUE TO MONITOR
[2018-06-20 20:00] VITALS: BP 113/72
--- NOTE | 2018-06-20 20:58 | NUR ---
MEDICATED WITH ZOFRAN AND ATIVAN PER ORDERS, PT C/O NAUSEA, NO EMESIS NOTED, REPORTS FEELING ANXIOUS, PT RESTING IN BED, RESP ARE EVEN AND UNLABORED ON ROOM AIR, NO OTHER NEEDS REPORTED, EDUCATED ABOUT SAFETY MEASURES, MED SCHEDULE AND PLAN OF CARE, VOICES UNDERSTANDING, WILL FOLLOW UP WITH FREQUENTLY ROUNDINGS.
--- NOTE | 2018-06-21 00:06 | NUR ---
MEDICATED WITH PAIN MED FOR GENERALIZED ACHING PAIN, RATES IT AT 8/10, ADMINISTERED LIBRIUM PER ORDERS, NO DISTRESS NOTED, DENIES OTHER NEEDS, WILL FOLLOW UP WITH FREQUENTLY ROUNDINGS. CALL ESCALERA AT REACH.
--- NOTE | 2018-06-21 01:03 | NUR ---
MEDICATED WITH ZOFRAN IV PER ORDERS, PT C/O NAUSEA, NO EMESIS NOTED, AFTER MED ADMINISTERED PT ASKED FOR APPLE SAUCE AND JELLO, PROVIDED WITH APPLE SAUCE PER PT REQUEST, NO JELLO AVAILABLE IN [place], WILL FOLLOW UP WITH FREQUENTLY ROUNDINGS. NO ORDERS NEEDS REPORTED.
--- NOTE | 2018-06-21 02:54 | NUR ---
MEDICATED PT WITH ATIVAN IV FOR MILD ANXIETY, CIWA SCORE REMAINS 4, WILL CONTINUE TO MONITOR, NO OTHER NEEDS VOICED, STATED "I HAVE A BOWEL MOVEMENT." DENIES FEELING CONSTIPATED OR DIARRHEA.
[2018-06-21 04:52] VITALS: BP 112/78
[2018-06-21 06:45] LABS: HEMATOCRIT 32.2 % (37.0-47.0); HEMOGLOBIN 10.4 g/dl (12.0-16.0); IMMATURE GRANULOCYTES 0.3 % (0.0-5.0); MEAN CELL VOLUME 89.4 fL CALC (80.0-100.0); MEAN CORPUSCULAR HGB 28.9 pG CALC (26.0-32.0); MEAN CORPUSCULAR HGB CONC 32.3 g/L CALC (32.0-36.0); NEUT# 1.62 thou/uL (2.00-7.15); RED BLOOD COUNT 3.6 mill/uL (4.20-5.60); RED CELL DISTRI WIDTH 19.8 % (11.5-15.5)
[2018-06-21 06:57] LABS: MAGNESIUM 1.7 mg/dL (1.6-2.3)
[2018-06-21 06:58] LABS: ALBUMIN 3.3 g/dL (3.2-5.0); ALKALINE PHOSPHATASE 57 u/l (38-126); ANION GAP 11 (6-22 (CALC)); BILIRUBIN, TOTAL 0.6 mg/dL (0.0-1.4); BUN 11 mg/dL (7-17); BUN/CREATININE RATIO 25 (12-20 (CALC)); CARBON DIOXIDE 25 mmol/l (22-30); CHLORIDE 105 mmol/l (95-108); CREATININE 0.5 mg/dL (0.5-1.0); GFR > 60 ML/MIN (>=60 (CALC)); GFR FOR AFR.AMER. > 60 ML/MIN (>=60 (CALC)); SGOT/AST 86 u/l (14-36); SODIUM 137 mmol/l (137-146); TOTAL PROTEIN 6.1 g/dL (6.3-8.2)
--- NOTE | 2018-06-21 07:10 | NUR ---
REPORT RECEIVED FROM DIVYA ABEL;PT APPEARS TO BE SLEEPING IN SEMI FOWLERS POSITION;NO S/S OF DISTRESS NOTED;RESPIRATIONS EVEN AND UNLABORED ON RA;SAFETY PRECAUTIONS IN PLACE,INCLUDING SEIZURE PRECAUTIONS;BED IN THE LOWEST POSITION WITH CALL LIGHT IN REACH;WILL CONTINUE TO MONITOR
--- NOTE | 2018-06-21 08:05 | NUR ---
PT RESTING IN BED EATING BREAKFAST;VS OBTAINED AND ASSESSMENT COMPLETED;PT REPORTS GENERALIZED PAIN RATING 6/10 ON THE PAIN SCALE AND REQUESTS PAIN MEDICATION;PT MEDICATED WITH PRN ULTRAM 50MG PO AT THIS TIME;RESPIRATIONS EVEN AND UNLABORED ON RA,CLEAR LUNG SOUNDS NOTED;ABDOMEN SOFT ON PALPATION AND ACTIVE IN ALL 4 QUADRANTS;STRONG PEDAL PULSES;LEFT SUBCLAVIAN TRIPLE LUMEN INFUSING @ 125ML/HR WITH EASE,SITE APPEARS HEALTHY;PT DENIES ANY CURRENT NEEDS AND IS INSTRUCTED TO CALL FOR ASSISTANCE IF NEEDED;FALL AND SEIZURE PRECAUTIONS IN PLACE;CALL LIGHT IN REACH;WILL CONTINUE TO MONITOR
[2018-06-21 08:06] VITALS: BP 106/67
--- NOTE | 2018-06-21 08:50 | NUR ---
PT REPORTS ANXIETY AND IS MEDICATED WITH ATIVAN 1 MG IVP;WILL MONITOR FOR EFFECTIVENESS
--- NOTE | 2018-06-21 11:20 | NUR ---
PT APPEARS TO BE SLEEPING IN SEMI FOWLERS POSITION;RESPIRATIONS EVEN AND UNLABORED ON RA;LEFT SUBCLAVIAN INFUSING BANANA BAG WITH EASE;ALL SAFETY PRECAUTIONS REINFORCED WITH CALL LIGHT IN REACH;WILL CONTINUE TO MONITOR
--- NOTE | 2018-06-21 13:50 | NUR ---
AT BEDSIDE DISCUSSING POC INCLUDING DISCHARGE PLAN.
[2018-06-21] MEDS ORDERED: LIBRIUM25 M1 PO (15:45)
[2018-06-21] MEDS ORDERED: PROTONIX40 M3 IV (15:46)
[2018-06-21 15:54] VITALS: BP 111/69
--- NOTE | 2018-06-21 16:38 | NUR ---
PT RESTING IN SEMI FOWLERS POSITION;RESPIRATIONS EVEN AND UNLABORED ON RA;PT REPORTS ANXIETY AT THIS TIME,PT MEDICATED WITH ATIVAN 1MG IVP;LEFT SUBCLAVIAN CONTINUES TO INFUSE BANANA BAG WITH EASE;PT DENIES ANY ADDITIONAL NEEDS AT THIS TIME;SEIZURE PRECAUTIONS IN PLACE;CALL LIGHT IN REACH;WILL CONTINUE TO MONITOR
--- NOTE | 2018-06-21 18:09 | NUR ---
LEFT CHEST TLC REMOVED. PT TOLERATED WELL. CATH TIP INTACT.
--- NOTE | 2018-06-21 18:20 | NUR ---
ALL DISCHARGE INSTRUCTIONS PROVIDED AT THIS TIME;PRESCRIPTIONS DISCUSSED INDEPH;NOTE PROVIDED FOR WORK R/T PT ADMISSION (COPY IN CHART);PT DENIES ANY CURRENT QUESTIONS OR NEEDS;WHEELCHAIR TO BE PROVIDED FOR DISCHARGE HOME.
--- NOTE | 2018-06-21 18:50 | NUR ---
Discharge instructions given. Patient verbalizes understanding of same. Discharged in stable condition via Wheelchair to Home with friend. All belongings sent with pt.
== END 2018-06-21 18:51 | disposition home or self-care (01) | DRG 432 ==
LOC: ED 13:19 → ED-I 15:25 → ED 15:47 → ICU 15:48 → MS2 06-17 12:10 → ICU 06-17 12:10 → MS2 06-19 15:25
PROVIDERS: Family Medicine; Internal Medicine Nephrology; ADMIT Internal Medicine Nephrology; ATTEND Internal Medicine Nephrology
PROC: 02HV33Z Insertion of Infusion Device into Superior Vena Cava, Percutaneous Approach (ICD-10-PCS; principal; 2018-06-18)
PROC: 4A02X4A Measurement of Cardiac Electrical Activity, Guidance, External Approach (ICD-10-PCS; 2018-06-18)
DX: K70.10 Alcoholic hepatitis without ascites (principal); K85.20 Alcohol induced acute pancreatitis without necrosis or infection; E87.1 Hypo-osmolality and hyponatremia; D61.818 Other pancytopenia; F10.231 Alcohol dependence with withdrawal delirium; F17.210 Nicotine dependence, cigarettes, uncomplicated; F41.1 Generalized anxiety disorder; J44.9 Chronic obstructive pulmonary disease, unspecified; F31.9 Bipolar disorder, unspecified; E87.6 Hypokalemia; E83.42 Hypomagnesemia; E83.39 Other disorders of phosphorus metabolism; B19.20 Unspecified viral hepatitis C without hepatic coma
CPT/HCPCS: J2060; S0164